=== PATIENT | male | born 1970 | race Caucasian/White ===

== ENCOUNTER → 2016-07-27 | Outpatient (CLI) | payer OTHER ==
[~2016-07-27] MED LIST: Motrin,Rufen800 MG PO
== END | disposition home or self-care (01) ==
LOC: ORTHO 03:09
DX: M25.511 Pain in right shoulder (principal); R53.1 Weakness

== ENCOUNTER → 2016-09-13 | Outpatient (CLI) | payer OTHER | END | disposition home or self-care (01) | LOC: MRI 15:00 | DX: M75.41 Impingement syndrome of right shoulder (principal) ==

== ENCOUNTER 2017-02-16 18:47 | Emergency (ER) | payer OTHER ==
[~2017-02-16] VITALS: Ht 182.8 cm; Wt 81.6 kg
[2017-02-16] MEDS ORDERED: PREDNISONE10 MG PO (19:12)
[2017-02-16] MEDS ORDERED: ROBITUSSIN DM 105 ML PO (19:12)
[2017-02-16] MEDS ORDERED: CLARITIN10 MG PO (19:12)
[2017-02-16] MEDS ORDERED: FLONASE ALLERG9.9 ML NAS (19:12)
== END 2017-02-16 20:40 | disposition home or self-care (01) ==
LOC: ED 18:47
DX: B34.9 Viral infection, unspecified (principal); R03.0 Elevated blood-pressure reading, without diagnosis of hypertension; F17.200 Nicotine dependence, unspecified, uncomplicated

== ENCOUNTER → 2017-04-02 | Outpatient (CLI) | payer OTHER ==
[~2017-04-02] MED LIST changes: +CLARITIN10 MG PO; +FLONASE ALLERG9.9 ML NAS; +PREDNISONE10 MG PO; +ROBITUSSIN DM 105 ML PO
== END | disposition home or self-care (01) ==
LOC: CT 14:59
DX: S02.81XA Fracture of other specified skull and facial bones, right side, initial encounter for closed fracture (principal); S09.90XA Unspecified injury of head, initial encounter; X58.XXXA Exposure to other specified factors, initial encounter; Y93.89 Activity, other specified; Y92.89 Other specified places as the place of occurrence of the external cause; Y99.8 Other external cause status

== ENCOUNTER → 2017-10-23 | Outpatient (CLI) | payer OTHER ==
--- NOTE | ~2017-10-23 | EKG ---
[place], [place] ELECTROCARDIOGRAM REPORT NAME: ROSA JC UNIT #: [id number] ROOM: DOCTOR: EPIPHANY DRAFT REPORT BIRTHDATE: [birth year] [facility] Test Date: 2017-10-23 Test Time: 10:58:24 Pat Name: ROSA JC Department: Room: Gender: Business Analysis Analyst: : 1970 Requested By: NAYANA MORALES Order Number: [id number] Reading MD: Raj Kingsley MD Measurements Intervals [place] Rate: 49 P: 81 TN: 175 QRS: 92 QRSD: 108 T: 72 QT: 455 QTc: 411 Interpretive Statements Sinus bradycardia Borderline right axis deviation Electronically Signed On 10-23-2017 20:51:04 PDT by Raj Kingsley MD CM:EKGRPT:ELECTROCARDIOGRAM REPORT [id number] NAYANA MORALES EPIPHANY DRAFT REPORT NAYANA MORALES
--- NOTE | ~2017-10-23 | HM ---
[place], [place] HOLTER MONITOR REPORT NAME: ROSA JC UNIT #: [id number] ROOM: DOCTOR: NJ GIL MD BIRTHDATE: [birth year] DOS: 10/23/2017 A 24-HOUR HOLTER MONITOR Study was done from 10/23/2017 through the 10/25/2017. The recording was analyzed on 10/28/2017 and is being interpreted on 10/29/2017. INDICATIONS: Bradycardia, lightheadedness. FINDINGS: The patient was monitored utilizing a Holter device for 48 hours. His basic rhythm was sinus with an average heart rate of 76, the heart rate varied from 38-160 beats per minute in sinus rhythm during the exam. He had rare premature ventricular contractions with 1 couplet noted. No ventricular tachycardia was recorded. He had frequent premature atrial contractions with occasional atrial couplets. No SVT was seen. No prolonged pauses were recorded. The patient did complain of lightheadedness when standing up. Heart rate at that time was sinus in the 80s. On one occasion, he complained of lightheadedness while walking and his heart rate was about 100. IMPRESSION: Sinus rhythm with normal rate variation. No significant arrhythmias recorded. NJ GIL MD CM:HOLTER:HOLTER MONITOR REPORT [id number] NJ GIL MD
== END | disposition home or self-care (01) ==
LOC: CARD 10:00
DX: R00.1 Bradycardia, unspecified (principal)

== ENCOUNTER → 2019-02-05 | Outpatient (CLI) | payer OTHER | END | disposition home or self-care (01) | LOC: ORTHO 00:33 | DX: M25.511 Pain in right shoulder (principal) ==

== ENCOUNTER → 2019-04-20 | Outpatient (CLI) | payer OTHER | END | disposition home or self-care (01) | LOC: CARD 09:00 | DX: R00.0 Tachycardia, unspecified (principal); R00.1 Bradycardia, unspecified; R55 Syncope and collapse; Z72.0 Tobacco use ==

== ENCOUNTER → 2019-09-07 | Outpatient (CLI) | payer OTHER ==
[2019-09-07 15:43] LABS: BASO # 0.1 10*3/uL (0.0-0.1); BASO % 0.9 % (0.0-1.0); EOS # 0.1 10*3/uL (0.0-0.4); EOS % 1.8 % (1.0-4.0); HEMATOCRIT 43.5 % (42.0-52.0); LYMPH # 2.4 10*3/uL (1.3-4.4); LYMPH % 35.2 % (27.0-41.0); MEAN CELL VOLUME 96.7 fl (80.0-94.0); MEAN CORPUSCULAR HGB 31.8 pg (27.0-31.0); MEAN CORPUSCULAR HGB CONC 32.9 g/dl (33.0-37.0); MEAN PLATELET VOLUME 11.2 fl (9.6-12.3); MONO # 0.5 10*3/uL (0.1-1.0); MONO % 7.7 % (3.0-9.0); NEUT # 3.7 10*3/uL (2.3-7.9); NEUT % 54.1 % (47.0-73.0); PLATELET COUNT AUTOMATED 208 10*3/uL (130-400); RED CELL DISTRI WIDTH 13.2 % (0-14.5); WHITE BLOOD COUNT 6.8 10*3/uL (4.8-10.8)
[2019-09-07 16:20] LABS: ALBUMIN 3.4 gm/dl (3.1-4.5); ALKALINE PHOSPHATASE 61 U/L (45-117); BILIRUBIN, DIRECT < 0.1 mg/dL (0.0-0.2); BUN 14 mg/dl (7-24); CHLORIDE 111 mmol/L (98-107); CREATININE 0.83 mg/dL (0.70-1.30); POTASSIUM 4.1 mmol/L (3.5-5.1); SGOT/AST 22 IU/L (3-35); SGPT/ALT 30 U/L (12-78); SODIUM 142 mmol/L (136-145); TOTAL PROTEIN 6.8 gm/dL (6.4-8.2); VALPROIC ACID (DEPAKENE) 42.9 ug/ml (50-100)
== END | disposition home or self-care (01) ==
LOC: CT 14:00 → LAB 14:06 → US 15:00
PROVIDERS: Social Worker Clinical
DX: Z51.81 Encounter for therapeutic drug level monitoring (principal); I65.23 Occlusion and stenosis of bilateral carotid arteries; R00.1 Bradycardia, unspecified; R41.3 Other amnesia; R42 Dizziness and giddiness; G44.52 New daily persistent headache (NDPH); Z79.899 Other long term (current) drug therapy; Z86.79 Personal history of other diseases of the circulatory system

== ENCOUNTER 2020-08-14 01:29 | Emergency (ER) | payer OTHER ==
[~2020-08-14] VITALS: Wt 72.6 kg
[2020-08-14 02:25] LABS: HEMATOCRIT 39.9 % (42.0-52.0); MEAN CELL VOLUME 94.5 fl (80.0-94.0); MEAN CORPUSCULAR HGB 32.2 pg (27.0-31.0); MEAN CORPUSCULAR HGB CONC 34.1 g/dl (33.0-37.0); MEAN PLATELET VOLUME 10.7 fl (9.6-12.3); PLATELET COUNT AUTOMATED 217 10*3/uL (130-400); RED BLOOD COUNT 4.22 10*6/uL (4.50-5.90); RED CELL DISTRI WIDTH 12.7 % (0-14.5); WHITE BLOOD COUNT 10.5 10*3/uL (4.8-10.8)
[2020-08-14 02:35] LABS: BILIRUBIN Negative (Negative); BLOOD Negative (Negative); CLARITY Turbid (Clear); COLOR Yellow (Yellow); GLUCOSE Negative (Negative); KETONE Trace (Negative); LEUKO ESTERASE Negative (Negative); NITRITE Negative (Negative)
[2020-08-14 02:36] LABS: ALBUMIN 3.5 gm/dl (3.1-4.5); ALKALINE PHOSPHATASE 88 U/L (45-117); BUN 19 mg/dl (7-24); CHLORIDE 106 mmol/L (98-107); CREATININE 1.07 mg/dL (0.70-1.30); POTASSIUM 3.8 mmol/L (3.5-5.1); SGOT/AST 23 IU/L (3-35); SGPT/ALT 33 U/L (12-78); SODIUM 142 mmol/L (136-145); TOTAL PROTEIN 6.6 gm/dL (6.4-8.2)
[2020-08-14 02:40] LABS: ATYPICAL LYMPHS 3 % (0-0); BASOPHILS 2 % (0-1); TOTAL CELLS COUNTED 100 #CELLS
[2020-08-14 02:42] LABS: PLATELET SUFFICIENCY NORMAL (NORMAL)
[2020-08-14 02:55] LABS: BACTERIA TRACE
[2020-08-14] MEDS ORDERED: NAPROXEN250 MG PO (08:12)
[2020-08-14] MEDS ORDERED: TYLENOL325 M1 PO (08:12)
== END 2020-08-14 08:26 | disposition home or self-care (01) ==
LOC: ED 01:29
PROVIDERS: Emergency Medicine
DX: S30.22XA Contusion of scrotum and testes, initial encounter (principal); F17.200 Nicotine dependence, unspecified, uncomplicated; Z79.899 Other long term (current) drug therapy; W22.8XXA Striking against or struck by other objects, initial encounter; Y93.89 Activity, other specified; Y92.69 Other specified industrial and construction area as the place of occurrence of the external cause; Y99.8 Other external cause status

== ENCOUNTER → 2021-02-09 | Outpatient (CLI) | payer OTHER ==
[~2021-02-09] MED LIST changes: +NAPROXEN250 MG PO; +TYLENOL325 M1 PO
[2021-02-09 08:58] LABS: HEMATOCRIT 43.8 % (42.0-52.0); MEAN PLATELET VOLUME 10.5 fl (9.6-12.3); RED BLOOD COUNT 4.66 10*6/uL (4.50-5.90); RED CELL DISTRI WIDTH 12.7 % (0-14.5); WHITE BLOOD COUNT 8.6 10*3/uL (4.8-10.8)
[2021-02-09 09:22] LABS: ALBUMIN 3.6 gm/dl (3.1-4.5); ALKALINE PHOSPHATASE 81 U/L (45-117); BUN 16 mg/dl (7-24); CHLORIDE 110 mmol/L (98-107); CHOLESTEROL 195 mg/dL (<200); CREATININE 0.89 mg/dL (0.70-1.30); FREE T4 0.99 ng/dl (0.76-1.46); LDL CHOLESTEROL 116 mg/dL (9-159); POTASSIUM 4.6 mmol/L (3.5-5.1); SGOT/AST 21 IU/L (3-35); SGPT/ALT 37 U/L (12-78); SODIUM 143 mmol/L (136-145); TOTAL PROTEIN 7.2 gm/dL (6.4-8.2); TRIGLYCERIDES 57 mg/dl (<150)
[2021-02-09 11:33] LABS: VITAMIN D, 25-HYDROXY 34.3 ng/mL (30-100)
== END | disposition home or self-care (01) ==
LOC: LAB 08:36
PROVIDERS: ATTEND Family Medicine
DX: Z00.00 Encounter for general adult medical examination without abnormal findings (principal); R53.83 Other fatigue; F41.1 Generalized anxiety disorder; F43.8 Other reactions to severe stress; E55.9 Vitamin D deficiency, unspecified; R06.2 Wheezing; F17.210 Nicotine dependence, cigarettes, uncomplicated

== ENCOUNTER 2022-03-16 20:55 | Emergency (ER) | payer OTHER ==
[~2022-03-16] VITALS: Ht 182.8 cm; Wt 68.0 kg
== END 2022-03-16 22:00 | disposition home or self-care (01) ==
LOC: ED 20:55
DX: H00.14 Chalazion left upper eyelid (principal); Z98.890 Other specified postprocedural states

== ENCOUNTER → 2022-06-01 | Outpatient (CLI) | payer OTHER | END | disposition home or self-care (01) | LOC: RAD 17:08 | PROVIDERS: ATTEND Nurse Practitioner Primary Care | DX: M79.641 Pain in right hand (principal) ==

== ENCOUNTER 2022-06-02 08:39 | Emergency (ER) | payer OTHER ==
[~2022-06-02] VITALS: Ht 182.8 cm; Wt 72.6 kg
== END 2022-06-02 10:41 | disposition home or self-care (01) ==
LOC: ED 08:39
DX: S92.511A Displaced fracture of proximal phalanx of right lesser toe(s), initial encounter for closed fracture (principal); W22.09XA Striking against other stationary object, initial encounter; Y93.89 Activity, other specified; Y92.89 Other specified places as the place of occurrence of the external cause; Y99.8 Other external cause status

== ENCOUNTER 2022-10-04 20:50 | Emergency (ER) | payer OTHER ==
[~2022-10-04] VITALS: Ht 177.8 cm; Wt 77.1 kg
[2022-10-04] MEDS ORDERED: HYDROCODONE-AC1 EAC1 PO (22:02)
== END 2022-10-04 21:02 | disposition home or self-care (01) ==
LOC: ED 20:50
DX: S62.667A Nondisplaced fracture of distal phalanx of left little finger, initial encounter for closed fracture (principal); L23.7 Allergic contact dermatitis due to plants, except food; X58.XXXA Exposure to other specified factors, initial encounter; Y93.89 Activity, other specified; Y92.009 Unspecified place in unspecified non-institutional (private) residence as the place of occurrence of the external cause; Y99.8 Other external cause status

== ENCOUNTER 2022-12-05 12:34 | Emergency (ER) | payer OTHER ==
[~2022-12-05] VITALS: Ht 182.8 cm; Wt 68.0 kg
[~2022-12-05 12:34] MED LIST changes: +HYDROCODONE-AC1 EAC1 PO
[2022-12-05] MEDS ORDERED: IBUPROFEN600 MG PO ×2 (16:17→16:22)
[2022-12-05] MEDS ORDERED: METHOCARBAMOL500 M1 PO ×2 (16:17→16:22)
== END 2022-12-05 16:22 | disposition home or self-care (01) ==
LOC: ED 12:34
DX: S33.5XXA Sprain of ligaments of lumbar spine, initial encounter (principal); W18.09XA Striking against other object with subsequent fall, initial encounter; Y93.89 Activity, other specified; Y92.098 Other place in other non-institutional residence as the place of occurrence of the external cause; Y99.8 Other external cause status

== ENCOUNTER 2024-05-30 17:31 | Emergency (ER) | payer SELFPAY ==
[~2024-05-30] VITALS: Ht 182.8 cm; Wt 70.3 kg
[~2024-05-30 17:31] MED LIST changes: +IBUPROFEN600 MG PO; +METHOCARBAMOL500 M1 PO
[2024-05-30] MEDS ORDERED: Acetaminophen/Oxycodone 5 MG/325 MG TABLET PO ONE (18:10)
[2024-05-30] MEDS ORDERED: PERCOCET 5-3251 EACH PO (18:26)
== END 2024-05-30 19:10 | disposition home or self-care (01) ==
LOC: ED 17:31
DX: S92.424A Nondisplaced fracture of distal phalanx of right great toe, initial encounter for closed fracture (principal); F17.200 Nicotine dependence, unspecified, uncomplicated; W22.8XXA Striking against or struck by other objects, initial encounter; Y93.89 Activity, other specified; Y92.89 Other specified places as the place of occurrence of the external cause; Y99.8 Other external cause status

== ENCOUNTER 2025-03-16 01:38 | Emergency (ER) | payer SELFPAY ==
[~2025-03-16] VITALS: Ht 182.8 cm; Wt 68.0 kg
[~2025-03-16 01:38] MED LIST changes: +PERCOCET 5-3251 EACH PO
== END 2025-03-16 03:39 | disposition home or self-care (01) ==
LOC: ED 01:38
DX: S90.32XA Contusion of left foot, initial encounter (principal); W22.8XXA Striking against or struck by other objects, initial encounter; Y93.89 Activity, other specified; Y92.89 Other specified places as the place of occurrence of the external cause; Y99.8 Other external cause status